=== PATIENT | male | born 2000 | race Caucasian/White ===

== ENCOUNTER 2023-02-08 07:21 | Emergency (ER) | payer SELFPAY ==
[2023-02-08] VITALS (8 sets, daily range): BP systolic 113–148; BP diastolic 72–85; PULSE 53–65; TEMP 36.6; O2SAT 97–100; BMI 19.0
--- NOTE | 2023-02-08 07:25 | W.ED.CHESTPA ---
HPI - Chest Pain General: Chief Complaint: Chest Pain Stated Complaint: chest pain Time Seen by Provider: 02/08/23 07:23 Source: patient Mode of arrival: EMS History of Present Illness: 22-year-old male presents to the ER via EMS with complaint of chest pain. Patient states he has had chest pain and has been bothering her intermittently since last night around 5:00. No radiation mostly substernal. No associated shortness of breath he has had some nausea. States he still having some chest discomfort now. No history of PE or DVT he is not on any anticoagulants he is not diabetic. No family history of excessively early coronary artery disease MD complaint: chest pain Onset (ago): hour(s) (15) Timing of current episode: episodic Onset: during rest Pain location: substernal Pain radiation: none Severity: mild Quality: aching Relieving factors: nothing Exacerbating factors: nothing Associated symptoms: Deny abdominal pain, diaphoresis, dyspnea, fever(s), leg edema, nausea, palpitations, sense of impending doom, syncope or vomiting Review of Systems Const: Denies: fever(s), chills or diaphoresis ENMT: Denies: throat pain Card: Reports: chest pain; Denies: palpitations or syncope Resp: Denies: dyspnea, productive cough or non-productive cough GI: Denies: abdominal pain, nausea or vomiting : Denies: flank pain, dysuria, urinary frequency or urinary urgency Musc: Denies: neck pain or back pain Skin/Breast: Denies: rash or pruritus Physical Exam Const: GENERAL APPEARANCE: cooperative and comfortable ORIENTATION/CONSCIOUSNESS: Yes awake, Yes oriented to person, Yes oriented to place and Yes oriented to time HENMT: COMMON NORMALS: normocephalic, atraumatic and hearing grossly normal bilaterally HEAD & SCALP: normocephalic and atraumatic Resp: COMMON NORMALS: normal respiratory effort, No retractions, No use of accessory muscles and clear to auscultation bilaterally AUSCULTATION: clear to auscultation bilaterally Cardio: COMMON NORMALS: regular rate, regular rhythm and No murmurs present (Cardio) RATE: regular rate RHYTHM: regular rhythm GI: COMMON NORMALS: Soft to palpation and No hepatosplenomegaly present AUSCULTATION: Yes normoactive bowel sounds PALPATION: Yes Soft to palpation, No Tenderness to palpation present (GI), No Guarding due to palpation present (GI) and Yes No hepatosplenomegaly present Extremity: COMMON NORMALS: normal to inspection, capillary refill normal, no clubbing, cyanosis or edema, no calf tenderness and no pedal edema Neuro: SENSORIUM/ORIENTATION: Yes oriented to person, Yes oriented to place and Yes oriented to time Skin: COMMON NORMALS: no rashes or lesions noted GENERAL SKIN EXAM: no rashes or lesions noted Course Vital Signs: Vital signs: Vital Signs Temperature 97.9 F 02/08/23 07:25 Pulse Rate 57 L 02/08/23 12:39 Blood Pressure 116/85 02/08/23 12:39 Pulse Oximetry 100 02/08/23 12:39 Oxygen Delivery Me thod Room Air 02/08/23 07:25 MDM - Chest Pain Medical Decision Making EKG and cardiac enzymes negative. There is no shortness of breath and no tachycardia no evidence of PE. Chest x-ray unremarkable. No widening mediastinum no pneumonia or pneumothorax D-dimer is negative. Patient improved after GI cocktail most likely GI source chest discomfort. Discharge home on Protonix follow-up with his primary care doctor Medical Records I reviewed the patient's medical records. Lab Data I reviewed the patient's lab results. 02/08/23 08:06 02/08/23 08:06 Radiology Impressions Chest X-Ray 02/08/23 07:30 Impression: Negative chest. Laboratory Results WBC 9.6 10^3/uL (4.0-10.0) 02/08/23 08:06 RBC 4.67 10^6/uL (4.1-5.3) 02/08/23 08:06 Hgb 14.4 g/dL (11.7-16.6) 02/08/23 08:06 Hct 41.7 % (42.0-52.0) L 02/08/23 08:06 MCV 89.3 fl (80-94) 02/08/23 08:06 MCH 30.8 pg (28.0-34.0) 02/08/23 08:06 MCHC 34.5 g/dL (30.0-36.0) 02/08/23 08:06 RDW 13.1 % (12.1-15.1) 02/08/23 08:06 Plt Count 219 10^3/cmm (130-400) 02/08/23 08:06 MPV 10.9 fL (7.4-10.4) H 02/08/23 08:06 Neut % (Auto) 73.7 % 02/08/23 08:06 Lymph % (Auto) 18.0 % 02/08/23 08:06 [place] % (Auto) 5.6 % 02/08/23 08:06 Eos % (Auto) 1.8 % 02/08/23 08:06 Baso % (Auto) 0.4 % 02/08/23 08:06 Neut # (Auto) 7.06 10^3/uL (1.8-7.7) 02/08/23 08:06 Lymph # (Auto) 1.7 10^3/uL (0.8-4.8) 02/08/23 08:06 [place] # (Auto) 0.5 10^3/uL (0.2-0.9) 02/08/23 08:06 Eos # (Auto) 0.2 10^3/uL (0.0-0.8) 02/08/23 08:06 Baso # (Auto) 0.0 10^3/uL (0.0-0.1) 02/08/23 08:06 Nucleated RBC % (auto) 0 % 02/08/23 08:06 Nucleated RBCs # 0.0 /100WBC 02/08/23 08:06 D-Dimer 0.33 ug/mIFEU (0-0.59) 02/08/23 08:06 Sodium 137 mmol/L (136-145) 02/08/23 08:06 Potassium 4.0 mmol/L (3.5-5.1) 02/08/23 08:06 Chloride 101 mmol/L (98-107) 02/08/23 08:06 Carbon Dioxide 26 mmol/L (22-29) 02/08/23 08:06 Anion Gap 14.0 (5-19) 02/08/23 08:06 BUN 11 mg/dL (6-20) 02/08/23 08:06 Creatinine 1.0 mg/dL (0.7-1.2) 02/08/23 08:06 GFR Calculation 94.3 mL/min (90-130) 02/08/23 08:06 Glucose 109 mg/dL (65-115) 02/08/23 08:06 Calculated Osmolality 284 mOsm/kg (285-295) L 02/08/23 08:06 Calcium 8.7 mg/dL (8.5-10.5) 02/08/23 08:06 Total Bilirubin 0.2 mg/dL (0.15-1.2) 02/08/23 08:06 AST 12 U/L (0-40) 02/08/23 08:06 ALT 6 U/L (0-41) 02/08/23 08:06 Alkaline Phosphatase 55 U/L (40-130) 02/08/23 08:06 Troponin T Baseline 13 ng/L (0-15) 02/08/23 08:06 Troponin T 120 Minute 6 ng/L (0-15) 02/08/23 10:10 Delta Troponin T -7 ABS# (0-10) L 02/08/23 10:10 C-Reactive Protein 3.0 mg/L (0.0-4.9) 02/08/23 08:06 Total Protein 6.5 g/dL (6.6-8.7) L 02/08/23 08:06 Albumin 4.1 g/dL (3.5-5.2) 02/08/23 08:06 Globulin 2.4 g/dL (1.3-4.6) 02/08/23 08:06 Urine Color Yellow (Yellow) 02/08/23 08:48 Urine Appearance Clear (CLEAR) 02/08/23 08:48 Urine pH 6 (5-7) 02/08/23 08:48 Ur Specific [place] 1.020 (1.005-1.030) 02/08/23 08:48 Urine Protein Neg (Negative) 02/08/23 08:48 Urine Glucose (UA) Norm (Normal) 02/08/23 08:48 Urine Ketones Negative (Negative) 02/08/23 08:48 Urine Blood Neg (Negative) 02/08/23 08:48 Urine Nitrate Negative (Negative) 02/08/23 08:48 Urine Bilirubin Neg (Negative) 02/08/23 08:48 Urine Urobilinogen Norm mg/dL (Negative) 02/08/23 08:48 Ur Leukocyte Esterase Negative (Negative) 02/08/23 08:48 Discharge Plan Discharge Patient Disposition: Home Clinical Impression: Atypical chest pain Condition: Stable Prescriptions: New Protonix 40 mg tablet,delayed release (DR/EC) 40 mg PO DAILY 56 Days Qty: 30 0RF Discharge Orders: Discharge ED (Routine); Ordered 02/08/23 Ordered By: Sarmad Montenegro Discharge Diet: Usual diet Discharge Activity: Resume usual activity Patient Instructions: Opioid Safety, Pain Management Activity Restrictions/Additional Instructions: You are seen today for chest pain. Your cardiac enzymes and EKG were unremarkable. Suspect a lot of your symptoms are due to reflux we will start you on Protonix 40 mg daily. If your symptoms worsen or change return to the emergency room. Coding Level of Care Code ED Travel Accommodation Inspector for Rica Peterson
--- NOTE | 2023-02-08 07:30 | XR_ITS ---
WS: [id number] Portable AP upright chest, 02/08/2023 Clinical Data: Chest pain Comparison: None. Findings: No nodules, masses or effusions are seen. The heart is normal. The pulmonary vascularity is not increased. No pneumonia or pneumothorax is seen. Monitor leads are on the chest wall. XR/XR chest 1V portable [id number] Impression: Negative chest.
--- NOTE | 2023-02-08 07:31 | ECG_ITS ---
[facility] Test Date: 2023-02-08 Pat Name: Napoleon Ruano Department: Room: Gender: Male Admitting Manager: : [id number] Requested By: Sarmad Greenwood Order Number: [id number] Abebe MD: Pamela Padilla M.D. Measurements Intervals [place] Rate: 61 P: 82 NE: 128 QRS: 76 QRSD: 97 T: 62 QT: 399 QTc: 403 Interpretive Statements SINUS RHYTHM POSSIBLE RIGHT VENTRICULAR CONDUCTION DELAY [RSR (QR) IN V1/V2] No previous ECG available for comparison Electronically Signed On 02-08-2023 9:52:58 CDT by Pamela Padilla M.D. [id number]
[2023-02-08] MEDS: aluminum-mag hydrox-simethicon 30 ML, sucralfate oral liq 1 GM PO (07:38)
[2023-02-08 08:15] LABS: Basophils % 0.4 %; Eosinophils # 0.2 10^3/uL (0.0-0.8); Eosinophils % 1.8 %; Hematocrit 41.7 % (42.0-52.0); Hemoglobin 14.4 g/dL (11.7-16.6); Lymphocytes # 1.7 10^3/uL (0.8-4.8); Mean Corpuscular HGB Conc 34.5 g/dL (30.0-36.0); Mean Corpuscular Hemoglobin 30.8 pg (28.0-34.0); Mean Corpuscular Volume 89.3 fl (80-94); Mean Platelet Volume 10.9 fL (7.4-10.4); Monocytes # 0.5 10^3/uL (0.2-0.9); Monocytes % 5.6 %; Neutrophils # 7.06 10^3/uL (1.8-7.7); Neutrophils % 73.7 %; Nucleated Red Blood Cells % 0 %; Platelet Count 219 10^3/cmm (130-400); Red Blood Count 4.67 10^6/uL (4.1-5.3); Red Cell Distribution Width 13.1 % (12.1-15.1); White Blood Count 9.6 10^3/uL (4.0-10.0)
[2023-02-08 08:30] LABS: D Dimer 0.33 ug/mIFEU (0-0.59)
[2023-02-08 08:34] LABS: Alanine Aminotransferase 6 U/L (0-41); Albumin Level 4.1 g/dL (3.5-5.2); Alkaline Phosphatase 55 U/L (40-130); Aspartate Amino Transferase 12 U/L (0-40); Blood Urea Nitrogen 11 mg/dL (6-20); Calcium 8.7 mg/dL (8.5-10.5); Carbon Dioxide 26 mmol/L (22-29); Chloride 101 mmol/L (98-107); Globulin 2.4 g/dL (1.3-4.6); Glomerular Filtration Rate 94.3 mL/min (90-130); Glucose 109 mg/dL (65-115); Osmolality Calculated 284 mOsm/kg (285-295); Sodium 137 mmol/L (136-145); Total Bilirubin 0.2 mg/dL (0.15-1.2); Total Protein 6.5 g/dL (6.6-8.7)
[2023-02-08 08:37] LABS: Troponin(5th) Baseline 13 ng/L (0-15)
[2023-02-08 08:54] LABS: Add Urine Microscopic? NO; Charge for UA Resulting for Rev
[2023-02-08 08:56] LABS: Bilirubin Urine Neg (Negative); Blood Urine Neg (Negative); Glucose Urine UA Norm (Normal); Ketones Urine Negative (Negative); Leukocyte Esterase Urine Negative (Negative); Nitrate Urine Negative (Negative); Protein Urine Neg (Negative); Urine Appearance Clear (CLEAR); Urine Color Yellow (Yellow); Urobilinogen Urine Norm (Negative); pH Urine 6 (5-7)
--- NOTE | 2023-02-08 09:34 | ECG_ITS ---
[facility] Test Date: 2023-02-08 Pat Name: Napoleon Ruano Department: Room: Gender: Male Fuel Agent: : 2000 Requested By: Sarmad Greenwood Order Number: [id number] Abebe MD: Pamela Padilla M.D. Measurements Intervals [place] Rate: 56 P: 81 DE: 122 QRS: 76 QRSD: 100 T: 66 QT: 412 QTc: 400 Interpretive Statements SINUS BRADYCARDIA POSSIBLE RIGHT VENTRICULAR CONDUCTION DELAY [RSR (QR) IN V1/V2] Compared to ECG 02/08/2023 07:29:03 Sinus rhythm no longer present Electronically Signed On 02-08-2023 9:53:17 CDT by Pamela Padilla M.D. [id number]
[2023-02-08 11:04] LABS: Troponin 5 2HR Delta -7 ABS# (0-10)
[2023-02-08 11:05] LABS: Troponin 5 2HR 6 ng/L (0-15)
== END 2023-02-08 12:40 | disposition home or self-care (01) ==
PROVIDERS: Emergency Provider Family Medicine
DX: R07.89 Other chest pain (principal)
CPT/HCPCS: 36415; 71045; 80053; 81003; 84484; 85025; 85378; 86140; 93005; 99285